=== PATIENT | male | born 1965 | race Caucasian/White ===

== ENCOUNTER 2016-11-25 07:50 | Inpatient (IN) | payer BC ==
[~2016-11-25] VITALS: Ht 188 cm; Wt 96.2 kg
[~2016-11-25 07:50] MED LIST: ULTRAM50 MG PO
[2016-11-25 08:14] VITALS: BP 130/90
[2016-11-25 16:13] VITALS: BP 144/84
[2016-11-25 19:29] VITALS: BP 129/74
[2016-11-26 00:04] VITALS: BP 117/66
[2016-11-26 00:23] VITALS: BP 117/66
[2016-11-26] MEDS ORDERED: CYCLOBENZAPRINE10 MG PO (07:41)
[2016-11-26] MEDS ORDERED: HYDROCODON-ACE1 EAC7 PO (07:41)
[2016-11-26 08:30] VITALS: BP 135/90
== END 2016-11-26 11:31 | disposition home or self-care (01) | DRG 460 ==
LOC: 2SOUTH 07:50 → 3EAST 15:46
DX: M51.36 Other intervertebral disc degeneration, lumbar region (principal); M41.9 Scoliosis, unspecified; M54.16 Radiculopathy, lumbar region; M48.06 Spinal stenosis, lumbar region
CPT/HCPCS: 72100; 76000; 86900; 86901; J0690; J1100; J1170; J1580; J2250; J2405; J2710; J2930; J3010; J3370; J3480; S0020